=== PATIENT | female | born 1990 | race Caucasian/White ===

== ENCOUNTER 2019-04-02 19:42 | Emergency (ER) | payer OTHER ==
[~2019-04-02] VITALS: Ht 170.2 cm; Wt 90.3 kg
[2019-04-02 19:47] VITALS: Ht 170.2 cm; Wt 90.3 kg
[2019-04-02 20:30] VITALS: BP 103/55
== END 2019-04-02 20:30 | disposition home or self-care (01) ==
LOC: ED 19:42
DX: J01.90 Acute sinusitis, unspecified (principal); M79.10 Myalgia, unspecified site
CPT/HCPCS: J1885

== ENCOUNTER 2019-10-22 22:55 | Emergency (ER) | payer OTHER ==
[~2019-10-22] VITALS: Ht 170.2 cm; Wt 93.9 kg
[2019-10-22 23:00] VITALS: Ht 170.2 cm; Wt 93.9 kg
[2019-10-23 01:41] LABS: CALCIUM 8.3 mg/dL (8.5-10.1); CARBON DIOXIDE 27.9 mmol/L (21-32); CHLORIDE SERUM 103 mmol/L (98-107); CREATININE SERUM 0.8 mg/dL (0.6-1.0); GFR1 > 60 mL/min; GLUCOSE SERUM 104 mg/dL (74-106); SODIUM SERUM 138 mmol/L (136-145)
[2019-10-23 01:43] LABS: BASOPHIL % 0.2 % (0-2); PLATELET COUNT 265 x10^3mcL (130-400); RED CELL DISTRIBUTION WIDTH 12.4 % (11.5-14.5)
[2019-10-23 01:45] LABS: ALBUMIN 3.7 g/dL (3.4-5.0); ALKALINE PHOSPHATASE 87 U/L (46-116); ALT/SGPT 33 U/L (14-59); AST/SGOT 19 U/L (15-37); BILIRUBIN TOTAL 0.39 mg/dL (0.20-1.00); LIPASE 84 IU/L (73-393); TOTAL PROTEIN, SERUM 7.4 g/dL (6.4-8.2)
[2019-10-23 02:12] VITALS: BP 106/67
== END 2019-10-23 02:12 | disposition home or self-care (01) ==
LOC: ED 22:55
PROVIDERS: Emergency Medicine
DX: G43.909 Migraine, unspecified, not intractable, without status migrainosus (principal); K21.9 Gastro-esophageal reflux disease without esophagitis
CPT/HCPCS: J1100; J2765; J3475; J3490; J7030